=== PATIENT | male | born 1985 | race Caucasian/White ===

== ENCOUNTER 2020-05-13 11:36 | Outpatient (CLI) | payer BC ==
--- NOTE | 2020-05-13 11:59 | RAD ---
XR Chest Pa Lat STANDARD HISTORY: Hodgkin's lymphoma, chest pain COMPARISON: 09/30/2009 FINDINGS: The heart size is normal. The lungs are well expanded without focal areas of consolidation, pneumothorax or pleural effusions. Right-sided AC separation is stable. IMPRESSION: No radiographic evidence of acute cardiopulmonary process.
== END 2020-05-13 11:37 | disposition home or self-care (01) ==
LOC: BICRAD 11:36
PROVIDERS: ATTEND Internal Medicine Hematology & Oncology
DX: C81.12 Nodular sclerosis Hodgkin lymphoma, intrathoracic lymph nodes (principal); E78.5 Hyperlipidemia, unspecified; E66.8 Other obesity; Z92.21 Personal history of antineoplastic chemotherapy
CPT/HCPCS: 71046

== ENCOUNTER 2020-05-15 13:34 | Outpatient (CLI) | payer BC | END 2020-05-15 13:35 | disposition home or self-care (01) | LOC: ULT 13:34 | PROVIDERS: ATTEND Internal Medicine Hematology & Oncology | DX: Z51.11 Encounter for antineoplastic chemotherapy (principal); C81.12 Nodular sclerosis Hodgkin lymphoma, intrathoracic lymph nodes; E78.5 Hyperlipidemia, unspecified; E66.8 Other obesity; I08.1 Rheumatic disorders of both mitral and tricuspid valves; Z79.899 Other long term (current) drug therapy | CPT/HCPCS: 93306 ==